=== PATIENT | female | born 2005 | race Two or more races ===

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

== ENCOUNTER 2025-01-31 12:24 | Emergency (ER) | payer OTHER ==
[2025-01-31 12:27] VITALS: BP 115/63; TEMP 98.4; O2SAT 97
[2025-01-31] MEDS ORDERED: PRENTAB9 PO (13:06)
== END 2025-01-31 12:30 | disposition admitted as inpatient to this hospital (09) ==
LOC: M ED 12:24
DX: Z53.21 Procedure and treatment not carried out due to patient leaving prior to being seen by health care provider (principal)

== ENCOUNTER 2025-01-31 12:34 | Outpatient (CLI) | payer OTHER ==
[~2025-01-31] VITALS: Ht 160 cm; Wt 79.2 kg
[2025-01-31 12:58] VITALS: BP 110/55
[2025-01-31] MEDS ORDERED: PRENTAB9 PO (13:06)
[2025-01-31] MEDS ORDERED: HOME MED LIST COMPLETE! XX SCH (13:10)
[2025-01-31 16:00] VITALS: BP 110/59
== END 2025-01-31 16:20 | disposition home or self-care (01) ==
LOC: M LDO 12:34
PROVIDERS: ATTEND Obstetrics & Gynecology
DX: O36.8130 Decreased fetal movements, third trimester, not applicable or unspecified (principal); Z3A.29 29 weeks gestation of pregnancy
CPT/HCPCS: 59025; 76815; 76819; 76820; G0463

== ENCOUNTER 2025-02-26 10:34 | Emergency (ER) | payer OTHER ==
[~2025-02-26 10:34] MED LIST: PRENTAB9 PO
== END 2025-02-26 10:35 | disposition admitted as inpatient to this hospital (09) ==
LOC: M ED 10:34
DX: Z53.21 Procedure and treatment not carried out due to patient leaving prior to being seen by health care provider (principal)

== ENCOUNTER 2025-02-26 10:40 | Outpatient (CLI) | payer OTHER ==
[~2025-02-26] VITALS: Ht 160 cm; Wt 83.0 kg
[2025-02-26 11:02] VITALS: BP 120/65
[2025-02-26] MEDS ORDERED: HOME MED LIST COMPLETE! XX SCH (11:10)
[2025-02-26 13:05] LABS: PLATELET COUNT, AUTOMATED 178 10^3/uL (150-450)
[2025-02-26 13:57] LABS: ALT/SGPT 23 U/L (7.0-40); AST/SGOT 25 U/L (<34); CALCIUM LEVEL 9.2 MG/DL (8.5-10.1); CARBON DIOXIDE LEVEL 22 MMOL/L (20-31); CHLORIDE LEVEL 107 MMOL/L (98-107); CREATININE FOR GFR 0.46 MG/DL (0.55-1.30); GLOMERULAR FILTRATION RATE > 90.0 (>60); POTASSIUM SERUM 4.2 MMOL/L (3.5-5.1); SODIUM LEVEL 140 MMOL/L (136-145)
== END 2025-02-26 14:40 | disposition home or self-care (01) ==
LOC: M LDO 10:40
PROVIDERS: ATTEND Specialist
DX: O26.893 Other specified pregnancy related conditions, third trimester (principal); R11.0 Nausea; R25.2 Cramp and spasm; Z3A.32 32 weeks gestation of pregnancy
CPT/HCPCS: 36415; 59025; 76815; 80053; 85027; G0463

== ENCOUNTER 2025-03-07 11:04 | Emergency (ER) | payer OTHER | END 2025-03-07 11:10 | disposition admitted as inpatient to this hospital (09) | LOC: M ED 11:04 | DX: Z53.21 Procedure and treatment not carried out due to patient leaving prior to being seen by health care provider (principal) ==

== ENCOUNTER 2025-03-07 11:23 | Outpatient (CLI) | payer OTHER ==
[~2025-03-07] VITALS: Ht 160 cm; Wt 86.0 kg
[2025-03-07 11:47] VITALS: BP 127/69
[2025-03-07 14:49] VITALS: BP 134/77
[2025-03-07] MEDS ORDERED: HOME MED LIST COMPLETE! XX SCH (16:00)
== END 2025-03-07 15:40 | disposition home or self-care (01) ==
LOC: M LDO 11:23
PROVIDERS: ATTEND Obstetrics & Gynecology
DX: O26.893 Other specified pregnancy related conditions, third trimester (principal); R25.2 Cramp and spasm; R51.9 Headache, unspecified; Z3A.33 33 weeks gestation of pregnancy
CPT/HCPCS: 59025; G0463

== ENCOUNTER 2025-03-10 18:11 | Emergency (ER) | payer OTHER | END 2025-03-10 18:15 | disposition admitted as inpatient to this hospital (09) | LOC: M ED 18:11 | DX: Z53.21 Procedure and treatment not carried out due to patient leaving prior to being seen by health care provider (principal) ==

== ENCOUNTER 2025-03-10 18:18 | Outpatient (CLI) | payer OTHER ==
[~2025-03-10] VITALS: Ht 160 cm; Wt 85.5 kg
[2025-03-10 18:38] VITALS: BP 122/72
[2025-03-10] MEDS ORDERED: HOME MED LIST COMPLETE! XX SCH (18:40)
[2025-03-10] MEDS: FLUCONAZOLE 50 MG TABLET PO ONE (20:31)
== END 2025-03-10 20:30 | disposition home or self-care (01) ==
LOC: M LDO 18:18
PROVIDERS: ATTEND Advanced Practice Midwife
DX: O23.593 Infection of other part of genital tract in pregnancy, third trimester (principal); B37.9 Candidiasis, unspecified; Z3A.34 34 weeks gestation of pregnancy
CPT/HCPCS: 59025; G0463